=== PATIENT | male | born 1960 | race Caucasian/White ===

== ENCOUNTER → 2023-05-04 07:09 | Outpatient (REF) | payer BC, SELFPAY ==
[2023-05-04 09:42] LABS: ALT (SGPT) 48 U/L (0-50); AST (SGOT) 38 U/L (17-59); Albumin 4.4 g/dl (3.5-5.0); Alkaline Phosphatase 83 U/L (38-126); Direct Bilirubin 0.2 mg/dl (0.0-0.4); Glucose 121 mg/dl (70-99); HDL Cholesterol 35 mg/dl; LDL Cholesterol, Calculated 54 mg/dl; Total Bilirubin 1.3 mg/dl (0.2-1.3); Total Cholesterol 137 mg/dl (50-199); Total Protein 7.7 g/dl (6.3-8.2); Triglyceride 240 mg/dl (10-149); Very Low Density Lipoprotein 48 mg/dl (0-30)
[2023-05-04 13:20] LABS: Glycohemoglobin (HgbA1c) 6.9 % (4.0-5.6)
== END ==
LOC: HWLAB 07:09
PROVIDERS: ATTENDING PHYSICIAN Internal Medicine; REFERRING PHYSICIAN Internal Medicine Cardiovascular Disease
DX: Z00.01 Encounter for general adult medical examination with abnormal findings (principal); E78.5 Hyperlipidemia, unspecified; E11.59 Type 2 diabetes mellitus with other circulatory complications; I10 Essential (primary) hypertension
CPT/HCPCS: 36415; 80061; 80076; 82947; 83036

== ENCOUNTER → 2023-08-19 15:46 | Outpatient (REF) | payer BC, SELFPAY | LOC: HWRCS 15:46 | PROVIDERS: ATTENDING PHYSICIAN Internal Medicine Cardiovascular Disease; FAMILY PHYSICIAN Internal Medicine | DX: I47.20 Ventricular tachycardia, unspecified (principal); Z95.810 Presence of automatic (implantable) cardiac defibrillator; I25.10 Atherosclerotic heart disease of native coronary artery without angina pectoris; Z95.1 Presence of aortocoronary bypass graft; I77.810 Thoracic aortic ectasia | CPT/HCPCS: 93306 ==

== ENCOUNTER → 2023-09-10 08:06 | Outpatient (REF) | payer BC, SELFPAY ==
[2023-09-10 12:09] LABS: ALT (SGPT) 38 U/L (0-50); AST (SGOT) 31 U/L (17-59); Albumin 4.7 g/dl (3.5-5.0); Alkaline Phosphatase 85 U/L (38-126); Direct Bilirubin 0.4 mg/dl (0.0-0.4); Glucose 106 mg/dl (70-99); HDL Cholesterol 34 mg/dl; LDL Cholesterol, Calculated 65 mg/dl; Total Bilirubin 1.7 mg/dl (0.2-1.3); Total Cholesterol 133 mg/dl (50-199); Total Protein 7.6 g/dl (6.3-8.2); Triglyceride 171 mg/dl (10-149); Very Low Density Lipoprotein 34 mg/dl (0-30)
[2023-09-10 15:09] LABS: Glycohemoglobin (HgbA1c) 6.2 % (4.0-5.6)
== END ==
LOC: HWLAB 08:06
PROVIDERS: ATTENDING PHYSICIAN Internal Medicine
DX: E11.59 Type 2 diabetes mellitus with other circulatory complications (principal); E78.5 Hyperlipidemia, unspecified; Z68.35 Body mass index [BMI] 35.0-35.9, adult
CPT/HCPCS: 36415; 80061; 80076; 82947; 83036

== ENCOUNTER → 2024-02-04 08:30 | Outpatient (REF) | payer MEDICARE, SELFPAY ==
[2024-02-04 10:01] LABS: % Basophils 0.4 % (0-2); % Eosinophils 2.2 % (0-6); % Immature Granulocytes 0.3 % (0-0.5); % Lymphocytes 19.1 % (20.5-51.1); % Monocytes 7.3 % (1.7-9.3); % Neutrophils 70.7 % (42.2-75.2); Absolute Eosinophils 0.2 10^3/uL (0-0.7); Absolute Lymphocytes 1.9 10^3/uL (1.2-3.4); Absolute Monocytes 0.7 10^3/uL (0.1-0.6); Hematocrit 50.1 % (39.0-52.0); Hemoglobin 16.7 g/dL (13.0-18.0); Mean Corp Hgb Conc. 33.3 g/dL (33.0-37.0); Mean Corpuscular Hgb 31.4 pg (27.0-31.0); Mean Corpuscular Volume 94.2 fL (80.0-94.0); Mean Platelet Volume 10.1 fL (7.4-10.4); Nucleated Red Blood Cells % 0 % (-); Platelet Count 159 10^3/uL (130-400); Red Blood Cell Count 5.32 10^6/uL (4.70-6.10); Red Cell Dist. Width 13.1 % (11.5-14.5); White Blood Cell Count 9.9 10^3/uL (4.8-10.8)
[2024-02-04 10:13] LABS: Glycohemoglobin (HgbA1c) 5.9 % (4.0-5.6)
[2024-02-04 10:25] LABS: ALT (SGPT) 32 U/L (0-50); AST (SGOT) 25 U/L (17-59); Albumin 4.9 g/dl (3.5-5.0); Alkaline Phosphatase 71 U/L (38-126); Blood Urea Nitrogen 13 mg/dl (9-20); Calcium 9.6 mg/dl (8.4-10.2); Carbon Dioxide 27 mmol/L (22-30); Chloride 103 mmol/L (98-107); Glucose 108 mg/dl (70-99); HDL Cholesterol 43 mg/dl; LDL Cholesterol, Calculated 82 mg/dl; Potassium 4.2 mmol/L (3.5-5.1); Sodium 139 mmol/L (135-145); Total Bilirubin 1.2 mg/dl (0.2-1.3); Total Cholesterol 151 mg/dl (50-199); Total Protein 7.9 g/dl (6.3-8.2); Triglyceride 133 mg/dl (10-149); Very Low Density Lipoprotein 26 mg/dl (0-30); eGFR > 60.00
[2024-02-04 10:50] LABS: PSA, Total - Screen 0.78 ng/ml (0.0-4.0)
== END ==
LOC: HWLAB 08:30
PROVIDERS: ATTENDING PHYSICIAN Internal Medicine
DX: E11.9 Type 2 diabetes mellitus without complications (principal); E78.5 Hyperlipidemia, unspecified; I10 Essential (primary) hypertension; E66.9 Obesity, unspecified; Z12.5 Encounter for screening for malignant neoplasm of prostate
CPT/HCPCS: 36415; 80053; 80061; 83036; 85025; G0103

== ENCOUNTER → 2024-06-05 08:25 | Outpatient (REF) | payer MEDICARE, SELFPAY ==
[2024-06-05 11:18] LABS: ALT (SGPT) 40 U/L (0-50); AST (SGOT) 27 U/L (17-59); Albumin 4.8 g/dl (3.5-5.0); Alkaline Phosphatase 87 U/L (38-126); Direct Bilirubin 0.3 mg/dl (0.0-0.4); Glucose 102 mg/dl (70-99); HDL Cholesterol 34 mg/dl; LDL Cholesterol, Calculated 54 mg/dl; Total Cholesterol 115 mg/dl (50-199); Total Protein 7.5 g/dl (6.3-8.2); Triglyceride 137 mg/dl (10-149); Very Low Density Lipoprotein 27 mg/dl (0-30)
[2024-06-05 12:03] LABS: Glycohemoglobin (HgbA1c) 6.1 % (4.0-5.6)
== END ==
LOC: HWLAB 08:25
PROVIDERS: ATTENDING PHYSICIAN Internal Medicine
DX: E11.59 Type 2 diabetes mellitus with other circulatory complications (principal); E78.5 Hyperlipidemia, unspecified; I10 Essential (primary) hypertension; E66.9 Obesity, unspecified
CPT/HCPCS: 36415; 80061; 80076; 82947; 83036

== ENCOUNTER → 2024-10-13 08:15 | Outpatient (REF) | payer MEDICARE, SELFPAY ==
[2024-10-13 14:08] LABS: Glycohemoglobin (HgbA1c) 5.9 % (4.0-5.6)
[2024-10-13 14:22] LABS: ALT (SGPT) 40 U/L (0-50); AST (SGOT) 30 U/L (17-59); Albumin 5.1 g/dl (3.5-5.0); Alkaline Phosphatase 79 U/L (38-126); Glucose 125 mg/dl (70-99); HDL Cholesterol 35 mg/dl; LDL Cholesterol, Calculated 63 mg/dl; Total Protein 8.1 g/dl (6.3-8.2); Very Low Density Lipoprotein 31 mg/dl (0-30)
== END ==
LOC: HWLAB 08:15
PROVIDERS: ATTENDING PHYSICIAN Internal Medicine
DX: E11.59 Type 2 diabetes mellitus with other circulatory complications (principal); Z79.84 Long term (current) use of oral hypoglycemic drugs; E66.9 Obesity, unspecified; E78.00 Pure hypercholesterolemia, unspecified; E78.5 Hyperlipidemia, unspecified
CPT/HCPCS: 36415; 80061; 80076; 82947; 83036

== ENCOUNTER 2024-11-23 06:19 | Day surgery (SDC) | payer MEDICARE, SELFPAY ==
[2024-11-23 09:30] LABS: Glucose - Point of Care 89 mg/dl (70-99)
== END 2024-11-23 10:39 | disposition home or self-care (01) ==
LOC: GI 06:19
PROVIDERS: ATTENDING PHYSICIAN Internal Medicine Gastroenterology
DX: Z12.11 Encounter for screening for malignant neoplasm of colon (principal); Z86.0100 Personal history of colon polyps, unspecified; K57.30 Diverticulosis of large intestine without perforation or abscess without bleeding; K64.8 Other hemorrhoids
CPT/HCPCS: G0105; 82962

== ENCOUNTER → 2025-02-14 06:51 | Outpatient (REF) | payer MEDICARE, SELFPAY ==
[2025-02-14 09:03] LABS: Hematocrit 48.4 % (39.0-52.0); Hemoglobin 16.1 g/dL (13.0-18.0); Mean Corp Hgb Conc. 33.3 g/dL (33.0-37.0); Mean Corpuscular Volume 91.7 fL (80.0-94.0); Nucleated Red Blood Cells % 0 % (-); Platelet Count 193 10^3/uL (130-400); Red Cell Dist. Width 12.6 % (11.5-14.5)
[2025-02-14 09:24] LABS: ALT (SGPT) 50 U/L (0-50); AST (SGOT) 31 U/L (17-59); Albumin 4.7 g/dl (3.5-5.0); Alkaline Phosphatase 93 U/L (38-126); Blood Urea Nitrogen 12 mg/dl (9-20); Calcium 9.8 mg/dl (8.4-10.2); Carbon Dioxide 26 mmol/L (22-30); Chloride 100 mmol/L (98-107); Glucose 98 mg/dl (70-99); HDL Cholesterol 33 mg/dl; LDL Cholesterol, Calculated 51 mg/dl; Potassium 4.3 mmol/L (3.5-5.1); Sodium 136 mmol/L (135-145); Total Protein 7.8 g/dl (6.3-8.2); Very Low Density Lipoprotein 35 mg/dl (0-30); eGFR > 60.00
[2025-02-14 09:51] LABS: PSA, Total - Screen 0.78 ng/ml (0.0-4.0)
[2025-02-14 10:54] LABS: Glycohemoglobin (HgbA1c) 6.0 % (4.0-5.9)
== END ==
LOC: HWLAB 06:51
PROVIDERS: ATTENDING PHYSICIAN Internal Medicine; REFERRING PHYSICIAN Internal Medicine Cardiovascular Disease
DX: E11.59 Type 2 diabetes mellitus with other circulatory complications (principal); Z79.84 Long term (current) use of oral hypoglycemic drugs; E78.5 Hyperlipidemia, unspecified; I10 Essential (primary) hypertension; E66.3 Overweight; Z00.01 Encounter for general adult medical examination with abnormal findings; Z12.5 Encounter for screening for malignant neoplasm of prostate
CPT/HCPCS: 36415; 80053; 80061; 83036; 85025; G0103